=== PATIENT | male | born 1990 | race Two or more races ===

== ENCOUNTER 2020-12-27 17:08 | Emergency (ER) | payer BC ==
[~2020-12-27] VITALS: Ht 170.2 cm; Wt 97.5 kg
[2020-12-27 17:16] VITALS: BP 114/62
--- NOTE | 2020-12-27 17:38 | NUR ---
SEEN AND EXAMINED BY RICHARDSON STEVENSON.
[2020-12-27] MEDS ORDERED: HYDROCODONE/APAP 5/325MG TABLET ONE (17:41)
[2020-12-27] MEDS ORDERED: KETOROLAC TROMETHAMINE INJ 30 MG/ML VIAL ONE (17:41)
--- NOTE | 2020-12-27 17:46 | NUR ---
ELEVATOR SERVICE TECHNICIAN AT BEDSIDE FOR XRAY.
[2020-12-27] MEDS ORDERED: HYDROCODONE/APAP 5/325MG TABLET PO ONE (18:00)
[2020-12-27] MEDS ORDERED: KETOROLAC TROMETHAMINE INJ 60 MG/2 ML VIAL IM ONE (18:00)
[2020-12-27] MEDS ORDERED: HYDR-4209 PO (19:18)
[2020-12-27] MEDS ORDERED: NAPR500T6 PO (19:18)
--- NOTE | 2020-12-27 19:29 | NUR ---
Patient discharged to home in stable condition. Written and verbal after care instructions given. Patient verbalizes understanding of instruction and RX. Pt ambulated out of ED. VSS.
== END 2020-12-27 19:30 | disposition home or self-care (01) ==
LOC: ER 17:10
DX: S39.012A Strain of muscle, fascia and tendon of lower back, initial encounter (principal); M43.16 Spondylolisthesis, lumbar region; X50.0XXA Overexertion from strenuous movement or load, initial encounter; Y93.89 Activity, other specified; Y92.89 Other specified places as the place of occurrence of the external cause; Y99.8 Other external cause status
CPT/HCPCS: 72110; 96372; 99283; J1885